=== PATIENT | male | born 1960 | race Caucasian/White ===

== ENCOUNTER 2021-03-20 11:49 | Emergency (ER) | payer OTHER, SELFPAY ==
[2021-03-20 11:51] VITALS: BP 140/92; PULSE 92; RESP 16; TEMP 36.2; O2SAT 97; BMI 29.2
--- NOTE | 2021-03-20 12:47 | EDS_ITS ---
HPI History of Present Illness Chief Complaint: Headache Narrative Narrative: 50-year-old male presenting for evaluation. He states that he woke up this morning and his neck was a little stiff and this caused him to have a slight headache. He did not have a fever. He states that over the course of the morning his neck pain has resolved. Patient states that he did feel a little bit hyper this morning and states that he does use caffeine. He denies chest pain or shortness of breath. He denies lightheadedness. He does state that he felt like he had a touch of vertigo which he had the past. This is also resolved. Patient has not taken any medication. He does not have a headache currently. Patient also states that from time to time when he sleeps on his left side his left arm goes numb. He states that when he wakes up this does improve. Patient also states that last summer his legs were cramping when he was working in the heat. Patient is a hazmat truck driver. He states he is very physically active at work. He had recent follow-up with his primary care and did blood work and this was all normal. PFSH PFS Home Medications aspirin 81 mg PO DAILY@0800 05/04/16 [History Last Taken Unknown] hydrochlorothiazide 12.5 mg PO DAILY #30 tablet 05/04/16 [Rx Last Taken Unknown] Allergy/AdvReac Type Severity Reaction Status Date / Time No Known Allergies Allergy Verified 03/20/21 12:30 Social History Smoking Status: Never smoker [facility] ED Constitutional Constitutional ED: Denies chills or subjective Eyes Eyes: Denies blurry vision or diplopia ENT ENT ED: Denies rhinorrhea or sore throat Cardiovascular Cardiovascular: Denies chest pain or palpitations Respiratory/Chest Respiratory/Chest: Denies cough, dyspnea or sputum Gastrointestinal Gastrointestinal: Denies abdominal pain, diarrhea, nausea or vomiting Genitourinary Genitourinary ED: Denies dysuria or hematuria Musculoskeletal Musculoskeletal: Reports neck pain; Denies arthralgias or myalgias Integumentary Denies abscess or rash Neurologic Neurologic: Reports headache(s) Psychiatric Psychiatric: Denies anxiety or depression EXAM Physical Exam Const Vital Signs: 03/20/21 11:51 Temperature 97.1 F L Temperature Source Temporal Pulse Rate 92 Respiratory Rate 16 Blood Pressure 140/92 H Blood Pressure Mean 108 Pulse Ox 97 Oxygen Delivery Method Room Air Positive well nourished General Appearance ED: NAD; Negative for pallor HEENT Reports normocephalic and moist mucous membranes atraumatic Eyes PERRL and EOMs intact bilaterally Neck no lymphadenopathy, supple and no meningeal signs Resp normal respiratory effort and clear to auscultation bilaterally Cardio regular rate and regular rhythm Neuro oriented x3, CN's II-XII intact bilaterally and no sensory deficits noted Sensorium / Orientation: awake and alert Motor Exam: strength 5/5 throughout Psych mental status grossly normal Skin General Skin Exam: Negative for jaundice or pallor Rashes: no rashes MDM MDM MDM Narrative Medical decision making narrative: Patient has a constellation of symptoms which do not appear to be related to each other. He does not have any meningeal signs. He is currently moving his head briskly without any pain. He does not have any signs of migraine and he is sitting in the light conversing normally. Neurologically he is intact throughout. Patient states that he did use [employer] this morning having foot and all of his symptoms and became more concerned. He states he is not usually prone to panic but was worried that something was going on. I did offer him blood work and imaging as well as an EKG. He does decline this and states that he will just follow-up with his primary care physician. I do believe this is reasonable and I do not believe that his constellation of symptoms describe stroke, ACS. He is describing symptoms from summer that have resolved as well. He recently had blood work which is normal. Patient states that this time he just wants to be discharged home. He is given return precautions. Impression: 1. Neck stiffness resolved 2. Headache resolved Discharge Plan Triage Chief Complaint: Headache ED Provider: Ronald Acosta Dx/Rx/DC Orders Instructions: ED Headache, Tension Prescriptions: No Action aspirin 81 MG tablet,chewable 81 mg PO DAILY@0800 RF: 0 hydrochlorothiazide 25 MG tablet 12.5 mg PO DAILY Qty: 30 RF: 0 Primary Care Provider: Bernardo Pulido Referrals: Bernardo Pulido MD [Primary Care Provider] - Disposition Disposition: Home, Self Care
== END 2021-03-20 12:57 | disposition home or self-care (01) ==
LOC: ED 12:56
PROVIDERS: Emergency Provider Student in an Organized Health Care Education/Training Program; PCP Family Medicine
DX: R51.9 Headache, unspecified (principal); Z79.82 Long term (current) use of aspirin
CPT/HCPCS: 99282